=== PATIENT | male | born 1975 | race Caucasian/White ===

== ENCOUNTER → 2021-02-20 | Outpatient (REF) | LOC: M LABSMTC 11:18 | PROVIDERS: ATTEND Pediatrics | DX: Z11.52 Encounter for screening for COVID-19 (principal); Z20.822 Contact with and (suspected) exposure to COVID-19 ==

== ENCOUNTER → 2023-02-18 | Outpatient (CLI) | payer BC ==
[2023-02-22 01:07] LABS: ANTINUCLEAR ANTIBODIES DIRECT Negative (Negative); CYCLIC CITRULLINATED PEPTIDE 6 units (0-19); IgG P18 AB Present (.); IgG P23 AB Absent (.); IgG P28 AB Present (.); IgG P30 AB Present (.); IgG P39 AB Present (.); IgG P41 AB Present (.); IgG P45 AB Absent (.); IgG P66 AB Present (.); IgG P93 AB Present (.); IgM P23 AB Absent (.); IgM P39 AB Absent (.); IgM P41 AB Absent (.); LYME IgG WB INTERPRETATION Positive (.); LYME IgM WB INTERPRETATION Negative (.)
== END ==
LOC: M RAD 14:42
PROVIDERS: ATTEND Family Medicine
DX: M25.551 Pain in right hip (principal); M76.891 Other specified enthesopathies of right lower limb, excluding foot

== ENCOUNTER → 2023-02-23 | Outpatient (CLI) | payer BC | LOC: M RAD 11:44 | PROVIDERS: ATTEND Family Medicine | DX: M25.551 Pain in right hip (principal); R59.9 Enlarged lymph nodes, unspecified; R93.5 Abnormal findings on diagnostic imaging of other abdominal regions, including retroperitoneum ==

== ENCOUNTER → 2023-04-08 | Outpatient (CLI) | payer BC | LOC: M RAD 09:22 | PROVIDERS: ATTEND Family Medicine | DX: R59.0 Localized enlarged lymph nodes (principal) ==

== ENCOUNTER → 2024-02-17 | Outpatient (CLI) | payer BC ==
[2024-02-17 10:34] LABS: BASO % 0.3 % (0.0-1.0); EOS # 0.1 10^3/uL (0.0-0.5); EOS % 0.7 % (0.0-3.0); HEMATOCRIT 45.3 % (42.0-52.0); LYMPH # 1.6 10^3/uL (1.5-5.0); LYMPH % 17.9 % (24.0-44.0); MEAN CORPUSCULAR HEMOGLOBIN 32.1 pg (27.0-33.0); MEAN CORPUSCULAR HGB CONC 33.1 g/dl (32.0-36.5); MONO # 0.5 10^3/uL (0.0-0.8); NEUTROPHILS # 6.5 10^3/uL (1.5-8.5); NEUTROPHILS % 74.6 % (36.0-66.0); PLATELET COUNT, AUTOMATED 271 10^3/uL (150-450); RED BLOOD COUNT 4.67 10^6/uL (4.30-6.10); WHITE BLOOD COUNT 8.7 10^3/uL (4.0-10.0)
[2024-02-17 10:41] LABS: ERYTHROCYTE SEDIMENTATION RATE 19 mm/hr (0-15)
[2024-02-17 11:02] LABS: URIC ACID 5.4 MG/DL (3.7-9.2)
[2024-02-17 11:05] LABS: C REACTIVE PROTEIN QUANTITATIV < 0.50 MG/DL (<1.0); RHEUMATOID FACTOR QUANT < 3.5 IU/ML (<14)
[2024-02-20 16:52] LABS: ANA SCREEN, IFA NEGATIVE (NEGATIVE)
[2024-02-21 02:16] LABS: CYCLIC CITRULLINATED PEPTIDE < 16 UNITS (<20)
[2024-02-21 08:17] LABS: IgG P18 AB REACTIVE; IgG P23 AB NON-REACTIVE; IgG P28 AB NON-REACTIVE; IgG P30 AB NON-REACTIVE; IgG P39 AB REACTIVE; IgG P41 AB REACTIVE; IgG P45 AB NON-REACTIVE; IgG P58 AB REACTIVE; IgG P66 AB NON-REACTIVE; IgG P93 AB REACTIVE; LYME IgG WB INTERPRETATION POSITIVE (NEGATIVE)
== END ==
LOC: M LAB 09:41
PROVIDERS: ATTEND Family Medicine
DX: M25.50 Pain in unspecified joint (principal)